=== PATIENT | male | born 1975 | race African-American/Black ===

== ENCOUNTER 2017-02-26 18:08 | Emergency (ER) | payer OTHER ==
[~2017-02-26] VITALS: Ht 177.8 cm; Wt 105.0 kg
[2017-02-26 18:10] VITALS: BP 144/93; PULSE 98; RESP 20; TEMP 98.3; O2SAT 97
[2017-02-26] MEDS ORDERED: METF1000 PO (18:15)
[2017-02-26 18:56] VITALS: O2SAT 100
[2017-02-26 18:59] VITALS: BP 163/86
[2017-02-26 19:00] VITALS: BP 151/78
[2017-02-26] MEDS ORDERED: SODIUM CHLORIDE 0.9% FLUSH 10 ML FLUSH IVF PRN (19:00)
[2017-02-26 19:01] VITALS: BP 158/84
--- NOTE | 2017-02-26 19:24 | PD ---
HPI Chief Complaint: Syncope/Near-Syncope Time Seen by Provider: 18:54 Travel History International Travel<30 days: No Contact w/Intl Traveler<30days: No Traveled to known affect area: No History of Present Illness HPI Patient comes in for evaluation after not feeling well while at the airport. Patient states that he began feeling hot and diaphoretic while taking a bowel movement and thought he might pass out. Patient states he took all his medication this morning but did not eat anything, so he ate a Snickers bar and drink some orange juice as he thought his blood sugar might be low. Patient denies any nausea, vomiting, chest pain, shortness of breath, headache, numbness or tingling anywhere, loss of consciousness, or loss or change in bowel or bladder. Patient denies anything like this happen to him before. Patient states he feels fine now after eating and getting some IV fluid. PFSH Past Medical History Diabetes: Yes (TYPE 2) Patient Takes Glucophage: Yes Hypertension: Yes Social History Alcohol Use: Yes (OCCASSIONAL) Tobacco Use: No Substance Use: No Allergies-Medications (Allergen,Severity, Reaction): Coded Allergies: shellfish derived (Verified Allergy, Unknown, 02/26/17) Reported Meds & Prescriptions Reported Meds & Active Scripts Active Reported Metformin (Metformin HCl) 1,000 Mg Tab 1,000 Mg PO BIDPC With meals Review of Systems Except as stated in HPI: all other systems reviewed are Neg Physical Exam Narrative GENERAL: Well-developed, overly nourished, in no acute distress, and non-ill appearing. SKIN: Focused skin assessment warm and dry. HEAD: Atraumatic. Normocephalic. EYES: Pupils equal and round. EOMI. No scleral icterus. No injection or drainage. ENT: No nasal bleeding or discharge. Mucous membranes pink and moist. NECK: Trachea midline. No JVD. Supple. No nuclear rigidity. CARDIOVASCULAR: Regular rate and rhythm. No murmur appreciated. RESPIRATORY: No accessory muscle use. No respiratory distress. Clear to auscultation. Breath sounds equal bilaterally. GASTROINTESTINAL: Abdomen soft, non-tender, nondistended, and no guarding. Hepatic and splenic margins not palpable. No pulsatile mass. MUSCULOSKELETAL: No obvious deformities. No clubbing. No cyanosis. No edema. Full range of motion. NEUROLOGICAL: Awake and alert. No obvious cranial nerve deficits. Motor grossly within normal limits. Normal speech. PSYCHIATRIC: Appropriate mood and affect; insight and judgment normal. Data Data Last Documented VS Vital Signs Date Time Temp Pulse Resp B/P (MAP) Pulse Ox O2 Delivery O2 Flow Rate FiO2 02/26/17 21:15 02/26/17 19:01 106 02/26/17 18:56 100 2.00 02/26/17 18:10 98.3 20 Orders Orders Basic Metabolic Panel (Bmp) (02/26/17 18:52) Complete Blood Count With Diff (02/26/17 18:52) Magnesium (Mg) (02/26/17 18:52) Ecg Monitoring (02/26/17 18:52) Iv Access Insert/Monitor (02/26/17 18:52) Oximetry (02/26/17 18:52) Sodium Chloride 0.9% Flush (Ns Flush) (02/26/17 19:00) Orthostatic Vital Signs (02/26/17 18:52) Ckmb (Isoenzyme) Profile (02/26/17 18:55) Troponin I (02/26/17 18:55) CKMB (02/26/17 18:40) CKMB% (02/26/17 18:40) Electrocardiogram (02/26/17 18:20) Labs Laboratory Tests Test 02/26/17 18:40 02/26/17 20:10 Blood Urea Nitrogen 13 MG/DL Creatinine 1.23 MG/DL Random Glucose 201 MG/DL Calcium Level 9.5 MG/DL Magnesium Level 2.4 MG/DL Sodium Level 140 MEQ/L Potassium Level 4.1 MEQ/L Chloride Level 110 MEQ/L Carbon Dioxide Level 17.7 MEQ/L Anion Gap 12 MEQ/L Estimat Glomerular Filtration Rate 78 ML/MIN Total Creatine Kinase 295 U/L Creatine Kinase MB 1.5 NG/ML Troponin I LESS THAN 0.02 NG/ML White Blood Count 16.1 TH/MM3 Red Blood Count 6.82 MIL/MM3 Hemoglobin 15.5 GM/DL Hematocrit 49.4 % Mean Corpuscular Volume 72.5 FL Mean Corpuscular Hemoglobin 22.7 PG Mean Corpuscular Hemoglobin Concent 31.4 % Red Cell Distribution Width 15.0 % Platelet Count 237 TH/MM3 Mean Platelet Volume 8.9 FL Neutrophils (%) (Auto) 82.1 % Lymphocytes (%) (Auto) 11.3 % Monocytes (%) (Auto) 5.8 % Eosinophils (%) (Auto) 0.3 % Basophils (%) (Auto) 0.5 % Neutrophils # (Auto) 13.3 TH/MM3 Lymphocytes # (Auto) 1.8 TH/MM3 Monocytes # (Auto) 0.9 TH/MM3 Eosinophils # (Auto) 0.0 TH/MM3 Basophils # (Auto) 0.1 TH/MM3 CBC Comment DIFF FINAL Differential Comment MDM Medical Decision Making Medical Screen Exam Complete: Yes Emergency Medical Condition: Yes Interpretation(s) EKG reviewed by Dr. Gaona shows sinus rhythm ventricular rate of 97. No STEMI. Differential Diagnosis Hypoglycemia, orthostatic hypotension, vasovagal reaction, electrolyte abnormality, acute cardiac syndrome, other Narrative Course Patient presented with near syncope episode. There was no true syncope. The patient denied any symptoms of chest pain, SOB/difficulty breathing, palpitations or skipped heartbeats. The patient denied and headache. The patient denied any bloody or tarry stools. There was no evidence to suggest neurologic or cardiac etiology or GIB. The diagnosis and findings were discussed with the patient and the patient was instructed to follow up with their primary physician. Patient in no obvious distress upon re-evaluation. All pertinent laboratory result(s) discussed with patient. Discussed patient with Dr. Gaona, who saw and evaluated the patient and is in agreement with plan of care and disposition. Any questions/concerns in reference to patient diagnosis/condition discussed and clarified prior to patient's discharge. Reinforced sheer importance of close follow up with patient's primary physician or primary care clinic. Instructed patient to return to ED immediately, if symptoms return/worsen. Patient showed understanding of above instructions. Further instructions and recommendations were detailed in discharge paperwork. Patient ambulated without difficulty out of ED at discharge. Diagnosis Primary Impression: Near syncope Patient Instructions: General Instructions, Near Syncope (ED) Additional Instructions: Follow-up with your primary care physician next week for reevaluation. Return to the emergency department if symptoms get worse. Disposition: 01 DISCHARGE HOME Condition: Stable Riik Galindo Feb 26, 2017 19:24
[2017-02-26 19:47] LABS: CREATINE KINASE 295 U/L (39-308)
[2017-02-26 19:59] LABS: CKMB 1.5 NG/ML (0.5-3.6)
[2017-02-26 20:28] LABS: AUTOMATED NEUTROPHIL # 13.3 TH/MM3 (1.8-7.7); BASOPHIL # 0.1 TH/MM3 (0-0.2); BASOPHIL % 0.5 % (0.0-2.0); EOSINOPHIL % 0.3 % (0.0-4.0); HEMATOCRIT 49.4 % (39.0-51.0); HEMO FLAGS DIFF FINAL; LYMPH % 11.3 % (9.0-44.0); LYMPHOCYTE # 1.8 TH/MM3 (1.0-4.8); MEAN CELL VOLUME 72.5 FL (80.0-100.0); MEAN CORPUSCULAR HEMOGLOBIN 22.7 PG (27.0-34.0); MEAN CORPUSCULAR HGB CONC 31.4 % (32.0-36.0); MONO % 5.8 % (0.0-8.0); NEUT % 82.1 % (16.0-70.0); PLATELET COUNT 237 TH/MM3 (150-450); RED BLOOD COUNT 6.82 MIL/MM3 (4.50-5.90); WHITE BLOOD COUNT 16.1 TH/MM3 (4.0-11.0)
[2017-02-26 20:30] LABS: BICARBONATE 17.7 MEQ/L (21.0-32.0); MAGNESIUM 2.4 MG/DL (1.5-2.5); POTASSIUM 4.1 MEQ/L (3.5-5.1)
--- NOTE | 2017-02-26 21:31 | EKG ---
Date Performed: 02/26/2017 Time Performed: 18:20:26 PTAGE: 41 years EKG: Sinus rhythm POSSIBLE LEFT ATRIAL ENLARGEMENT T-WAVE ABNORMALITY, CONSIDER LATERAL ISCHEMIA ABNORMAL ECG NO PREVIOUS TRACING DOCTOR: Andrew Linder Interpretating Date/Time 02/26/2017 21:29:19
--- NOTE | 2017-02-26 21:44 | PD ---
Data Data Last Documented VS Vital Signs Date Time Temp Pulse Resp B/P (MAP) Pulse Ox O2 Delivery O2 Flow Rate FiO2 02/26/17 21:15 02/26/17 19:01 106 02/26/17 18:56 100 2.00 02/26/17 18:10 98.3 20 Orders Orders Basic Metabolic Panel (Bmp) (02/26/17 18:52) Complete Blood Count With Diff (02/26/17 18:52) Magnesium (Mg) (02/26/17 18:52) Ecg Monitoring (02/26/17 18:52) Iv Access Insert/Monitor (02/26/17 18:52) Oximetry (02/26/17 18:52) Sodium Chloride 0.9% Flush (Ns Flush) (02/26/17 19:00) Orthostatic Vital Signs (02/26/17 18:52) Ckmb (Isoenzyme) Profile (02/26/17 18:55) Troponin I (02/26/17 18:55) CKMB (02/26/17 18:40) CKMB% (02/26/17 18:40) Electrocardiogram (02/26/17 18:20) Labs Laboratory Tests Test 02/26/17 18:40 02/26/17 20:10 Blood Urea Nitrogen 13 MG/DL Creatinine 1.23 MG/DL Random Glucose 201 MG/DL Calcium Level 9.5 MG/DL Magnesium Level 2.4 MG/DL Sodium Level 140 MEQ/L Potassium Level 4.1 MEQ/L Chloride Level 110 MEQ/L Carbon Dioxide Level 17.7 MEQ/L Anion Gap 12 MEQ/L Estimat Glomerular Filtration Rate 78 ML/MIN Total Creatine Kinase 295 U/L Creatine Kinase MB 1.5 NG/ML Troponin I LESS THAN 0.02 NG/ML White Blood Count 16.1 TH/MM3 Red Blood Count 6.82 MIL/MM3 Hemoglobin 15.5 GM/DL Hematocrit 49.4 % Mean Corpuscular Volume 72.5 FL Mean Corpuscular Hemoglobin 22.7 PG Mean Corpuscular Hemoglobin Concent 31.4 % Red Cell Distribution Width 15.0 % Platelet Count 237 TH/MM3 Mean Platelet Volume 8.9 FL Neutrophils (%) (Auto) 82.1 % Lymphocytes (%) (Auto) 11.3 % Monocytes (%) (Auto) 5.8 % Eosinophils (%) (Auto) 0.3 % Basophils (%) (Auto) 0.5 % Neutrophils # (Auto) 13.3 TH/MM3 Lymphocytes # (Auto) 1.8 TH/MM3 Monocytes # (Auto) 0.9 TH/MM3 Eosinophils # (Auto) 0.0 TH/MM3 Basophils # (Auto) 0.1 TH/MM3 CBC Comment DIFF FINAL Differential Comment MDM Supervised Visit with DEBBIE: Yes Narrative Course The history, exam, and medical decision-making in the associated mid-level provider note were completed with my assistance. I reviewed and agree with the findings presented. I attest that I had a [id number] encounter with the patient on the same day, and personally performed and documented my assessment and findings in the medical record. *My assessment and Findings: Is a 40-year-old man who presents emergency department after an episode while he was using the commode of high flushed feeling and diaphoresis. No chest pain , no trouble breathing, no near-syncope symptoms. This is likely blood sugar related or may be a vasovagal episode. His multiple risk factors for ACS. His EKG showed some nonspecific ST changes. He has a heart score of 3 based on his abnormal EKG, risk factors. Discussed this with the patient. He is low risk for major adverse cardiac events. He agrees to return for any chest pain trouble breathing or recurrent symptoms. Diagnosis Primary Impression: Near syncope Patient Instructions: General Instructions, Near Syncope (ED) Departure Forms: Tests/Procedures Additional Instruction: Follow-up with your primary care physician next week for reevaluation. Return to the emergency department if symptoms get worse. Disposition: 01 DISCHARGE HOME Condition: Stable Chente Gaona MD Feb 26, 2017 21:44
== END 2017-02-26 21:19 | disposition home or self-care (01) ==
LOC: NEPE 18:08
DX: R55 Syncope and collapse (principal); R94.31 Abnormal electrocardiogram [ECG] [EKG]; E11.9 Type 2 diabetes mellitus without complications; I10 Essential (primary) hypertension; Z79.899 Other long term (current) drug therapy
CPT/HCPCS: 80048; 82550; 82552; 83735; 84484; 85025; 93005; 99284